=== PATIENT | female | born 1930 | race Caucasian/White ===

== ENCOUNTER 2017-10-07 10:38 | Inpatient (IN) | payer MEDICARE ==
--- NOTE | 2017-10-07 11:47 | ED ---
Lower Extremity - HPI Summary HPI Summary: Patient is an 87-year-old with a history of dementia presenting to the ED with brother (crm developer). Brother states she has been complaining of her left leg upon standing. Due to the patient's history of dementia, history of present illness and ROS are limited and unable to discern if she is currently having pain. Brother does denies any other complaints from patient. He states it is becoming difficult to care for her and she is falling more frequently. Patient of Dr. paulson. Current medications include Seroquel at bedtime. Decrease in weight from 120 to 72lbs in the past few months per . Decreased PO intake. 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 Hx From Patient Unobtainable Due To: Dementia Mechanism Of Injury: Unknown Onset of Pain: Days - most likely - patients unsure Severity Initially: Moderate Severity Currently: Moderate Pain Intensity: 8 Pain Scale Used: 0-10 Numeric Timing: Constant Character Of Pain: Unable To Describe Associated Signs And Symptoms: Positive: Weakness - at baseline d/t declination Aggravating Factor(s): Standing, Ambulation Alleviating Factor(s): Rest Able to Bear Weight: No - patient c/o pain upon bearing weight - Risk Factors Gout Risk Factors: Negative DVT Risk Factors: Negative Septic Arthritis Risk Factor: Negative - Allergies/Home Medications Allergies/Adverse Reactions: Allergies Allergy/AdvReac Type Severity Reaction Status Date / Time No Known Allergies Allergy Verified 03/28/17 13:35 Home Medications: Home Medications Cholecalciferol TAB* [Vitamin D TAB*] 1,000 unit PO DAILY 10/07/17 [History Confirmed 10/07/17] Citalopram TAB* [CeleXA TAB*] 20 mg PO DAILY 10/07/17 [History Confirmed ] QUEtiapine TAB* [SEROquel TAB*] 50 mg PO BEDTIME 10/07/17 [History Confirmed ] PMH/Surg Hx/FS Hx/Imm Hx Previously Healthy: Yes Endocrine/Hematology History: Denies: Hx Diabetes Cardiovascular History: Denies: Hx Hypertension History: Denies: Hx Dialysis, Hx Renal Disease Neurological History: Reports: Hx Dementia - Surgical History Surgery Procedure, Year, and Place: tubal, csection - Immunization History Hx Pertussis Vaccination: No Immunizations Up to Date: Unable to Obtain/Confirm Infectious Disease History: No Infectious Disease History: Denies: Traveled Outside the [place] in Last 30 Days - Family History Known Family History: Positive: None Family History: R & n/C - Social History Occupation: Retired Lives: With Family Alcohol Use: None Hx Substance Use: No Substance Use Type: Reports: None Hx Tobacco Use: No Smoking Status (MU): Never Smoked Tobacco Review of Systems Negative: Fever, Chills, Fatigue, Skin Diaphoresis Negative: Palpitations, Chest Pain Negative: Shortness Of Breath, Cough Genitourinary: Other - incontinent of urine Positive: Arthralgia - c/o pain to left leg Skin: Negative Neurological: Negative All Other Systems Reviewed And Are Negative: Yes Physical Exam Triage Information Reviewed: Yes Vital Signs On Initial Exam: Initial Vitals Temp Pulse Resp BP Pulse Ox 99.5 F 89 19 190/102 94 10/07/17 11:08 10/07/17 11:08 10/07/17 11:08 10/07/17 11:08 10/07/17 11:08 Vital Signs Reviewed: Yes Completion Of Physical Exam Limited Due To: Dementia Appearance: Positive: Thin - 72 lbs - not eating or drinking, Cachectic - Disheveled with dirt to fingernails and urine odor Skin: Positive: Skin Color Reflects Adequate Perfusion Head/Face: Positive: Normal Head/Face Inspection Neck: Positive: No Lymphadenopathy Respiratory/Lung Sounds: Positive: Clear to Auscultation Cardiovascular: Positive: RRR Musculoskeletal: Positive: Other - not complaining of pain after logrolling, no pain on deep palpation of both lower extremities Neurological: Positive: Other - dementia Psychiatric: Positive: Patient Uncooperative for Exam AVPU Assessment: Verbal (Reponds To) Diagnostics - Vital Signs Vital Signs Temp Pulse Resp BP Pulse Ox 10/07/17 11:08 99.5 F 89 19 190/102 94 - Laboratory Lab Statement: Any lab studies that have been ordered have been reviewed, and results considered in the medical decision making process. Lower Extremity Course/Dx - Course Course Of Treatment: Physical examination reveals a thin disheveled unkempt frail 87-year-old female with dementia unable to discuss history of present illness or ROS. She is unable to tell me if she is having pain. Log rolled patient both right and left and continued to not complain of pain. No obvious ecchymosis, erythema or swelling to the bilateral lower extremities. X-ray obtained. Discussed case with brother and I have advised the obtained a social work consult as he is having more difficulty caring for her at this time. Social work consult recommends palliative/hospice care for in home services as she is failure to thrive. IMPRESSION: #. Mildly impacted subcapital fracture of the LEFT femoral neck corresponding with the. radiographic finding. Negative for additional acute fracture within the [id number]. Associated small LEFT hip joint effusion. Discussed with Dr. Glover who recommends a femur x-ray as well. I've discussed the case with Dr. Green will admit to Hospital services for failure to thrive and further assess femoral neck fracture. Discussed case with family who would like to speak with the orthopedic surgeon prior to moving forward with any surgery. Labs obtained. - Diagnoses Differential Diagnosis/HQI/PQRI: Positive: Other - failure to thrive Provider Diagnoses: Femoral neck fracture - Physician Notifications Discussed Care Of Patient With: Grace Glover Instructed by Provider To: Admit As Inpatient Discharge - Sign-Out/Discharge Documenting (check all that apply): Discharge/Admit/Transfer - Discharge Plan Condition: Fair Disposition: ADMITTED TO [facility] Referrals: Alisson Paulson MD [Primary Care Provider] - - Billing Disposition and Condition Condition: FAIR Disposition: Admitted to [facility]
[2017-10-07 12:20] LABS: Urine Appearance Cloudy; Urine Blood 1+ (Negative); Urine Color Yellow; Urine Ketones Negative (Negative); Urine Protein Negative (Negative); Urine Specific Gravity 1.005 (1.010-1.030); Urine Urobilinogen Negative (Negative)
--- NOTE | 2017-10-07 12:58 | RAD ---
Indication: LEFT hip pain post fall. Comparison: March 28, 2017 CT. Technique: Supine AP pelvis and AP and frog-leg lateral views LEFT hip. Report: Suggestion of potential mildly impacted subcapital fracture at the LEFT femoral neck. Mild medial joint space narrowing at the LEFT hip. Negative for pelvic fracture or pelvic joint diastases. Unremarkable soft tissue contours. IMPRESSION: #. Probable mildly impacted subcapital fracture of the LEFT femoral neck. Correlate with clinical assessment. If there is low pretest probability for acute hip fracture consider CT for further assessment.
--- NOTE | 2017-10-07 14:19 | RAD ---
Indication: Multiple falls. LEFT hip and leg pain. Suggestion of mildly impacted subcapital LEFT femoral neck fracture on radiographs. Comparison: Radiographs of the same date. March 28, 2017 CT Technique: Multidetector CT pelvis without contrast. Multiplanar reformation with bone algorithm. Report: Severe rectal distention with stool. Negative for pelvic ascites or free air within the [id number]. Negative for significant hernias. Unremarkable partially distended urinary bladder as well as the atrophic uterus and adnexal regions. Negative for lymphadenopathy. Peripheral atherosclerotic calcification. Negative for aneurysm of the visualized distal abdominal aorta or iliac arteries. Negative for retroperitoneal or superficial soft tissue hematoma. Bone density appears decreased corresponding with osteopenia on November 05, 2010 DEXA scan. Mildly impacted subcapital fracture of the LEFT femoral neck corresponding with the radiographic finding. Negative for additional acute fracture within the [id number]. Associated small LEFT hip joint effusion. Both hips are remarkable for mild to moderate axial joint space narrowing and chondrocalcinosis of the hyaline articular cartilage and fibrocartilage labrum. IMPRESSION: #. Mildly impacted subcapital fracture of the LEFT femoral neck corresponding with the radiographic finding. Negative for additional acute fracture within the [id number]. Associated small LEFT hip joint effusion.
--- NOTE | 2017-10-07 15:06 | ADMNOTE ---
Subjective Date of Service: 10/07/17 Interval History: ADMISSION HISTORY AND PHYSICAL EXAM: Allergies Allergy/AdvReac Type Severity Reaction Status Date / Time No Known Allergies Allergy Verified 03/28/17 13:35 Home Medications Medication Instructions Recorded Confirmed Type Cholecalciferol TAB* [Vitamin D 1,000 unit PO DAILY 10/07/17 10/07/17 History TAB*] Citalopram TAB* [CeleXA TAB*] 20 mg PO DAILY 10/07/17 10/07/17 History QUEtiapine TAB* [SEROquel TAB*] 50 mg PO BEDTIME 10/07/17 10/07/17 History HPI: The history is obtained from her . She fell down about 2 PM yesterday and could not get up by herself. She was put in a WC. Today she still couldn' t walk. She denies pain. Family History: Findings - Unremarkable. Social History: Findings - Lives with her who is her SDM. No alcohol or tabacco use. Past Medical History: Findings - 4 children Review of Systems - Measurements Intake and Output: Intake and Output Last 24 Hours 10/05/17 10/06/17 10/07/17 10/08/17 06:59 06:59 06:59 06:59 Weight 72 lb - Review of Systems Constitutional Symptoms: Positive: Weight Loss - for almost a year. Dermatology: Positive: Normal HEENT: Positive: Normal Thyroid: Positive: Normal Pulmonary: Positive: Normal Cardiology: Positive: Normal Gastroenterology: Positive: Anorexia Genital - Urinary: Negative: Normal, Dysuria, Hematuria, Polyuria, Nocturia, Other Musculoskeletal: Negative: Joint Pain, Joint Stiffness, Arthritis, Osteoporosis, Low Back Pain , Sciatica, Joint Deformities, Kyphoscoliosis, Other Endocrinology: Positive: Normal Hematologic/Lymphatic: Negative: Anemia, Easy Brusing, Hx Leukemia, Hx Lymphoma, Use of Anticoagulant, Use of Antiplatelet Drugs, Other Neurology: Positive: Change in Memory Psychiatry: Positive: Normal Allergic/Immunologic: Negative: Hx Anaphylaxis, Hx Angioedema, Hx Environmental, Hx Seasonal, Athsma, Hx HIV, Immunocompromise, Swollen Glands LymphNodes, Other Objective Active Medications: Acetaminophen (Tylenol Tab*) 650 mg PO Q4H PRN PRN Reason: PAIN Cholecalciferol (Vitamin D Tab*) 1,000 units PO DAILY CARLOTA Citalopram Hydrobromide (Celexa Tab*) 10 mg PO DAILY CARLOTA Enoxaparin Sodium (Lovenox(*)) 30 mg SUBCUT Q24H CARLOTA Quetiapine Fumarate (Seroquel Tab*) 25 mg PO BEDTIME CARLOTA Vital Signs - 8 hr 10/07/17 11:08 Temperature 99.5 F Pulse Rate 89 Respiratory 19 Rate Blood Pressure 190/102 (mmHg) O2 Sat by Pulse 94 Oximetry Oxygen Devices in Use Now: Nasal Cannula Appearance: Lying supine on ED stretcher. Very passive, sparse speech. Looks comfortable. Eyes: No Scleral Icterus Ears/Nose/Mouth/Throat: Clear Oropharnyx, Mucous Membranes Moist Neck: NL Appearance and Movements; NL JVP, No Thyroid Enlargement, Masses Respiratory: Symmetrical Chest Expansion and Respiratory Effort, Clear to Auscultation, Clear to Percussion Cardiovascular: NL Sounds; No Murmurs; No JVD, RRR, No Edema, - Extremities: No Edema, No Clubbing, Cyanosis, - Skin: No Rash or Ulcers, No Nodules or Sclerosis, - Neurological: NL Sensation - Very passive. Not able to answer most questions, can only state her first name. No tremor. Result Diagrams: 10/08/17 01:02 10/07/17 15:31 Assess/Plan/Problems-Billing Assessment: - Patient Problems (1) Dementia Current Visit: Yes Status: Acute Code(s): F03.90 - UNSPECIFIED DEMENTIA WITHOUT BEHAVIORAL DISTURBANCE SNOMED Code(s): 40600275 Comment: On half her home dose of citalopram and quetiapine. Consider further reductions in the future. IV d/c'd. (2) Hip fracture, left Current Visit: Yes Status: Acute Code(s): S72.002A - FRACTURE OF UNSP PART OF NECK OF LEFT FEMUR, INIT SNOMED Code(s): 022446539 Comment: After much discussion with myself and Dr. Glover, the family has elected for non-surgical management. Given her recent decline this is a reasonable decision. I have ordered calorie counts which may help her qualify for Hospice.
[2017-10-07 15:41] LABS: ABS Basophils 0.1 10^3/ul (0-0.2); ABS Eosinophils 0.1 10^3/ul (0-0.6); ABS Monocytes 0.5 10^3/ul (0-0.8); ABS Neutrophils 5.7 10^3/ul (1.5-7.7); ABS Nucleated RBC 0 10^3/ul; Hematocrit 38 % (35-47); Hemoglobin 12.4 g/dl (12.0-16.0); Lymphocyte % 13.5 % (25-47); Mean Corpuscular HGB Conc 33 g/dl (31-36); Mean Corpuscular Hemoglobin 25 pg (27-31); Mean Corpuscular Volume 77 fL (80-97); Mean Platelet Volume 6.1 um3 (7.4-10.4); Nucleated Red Blood Cells % 0; Platelet Count 373 10^3/ul (150-450); Red Blood Count 4.88 10^6/ul (4.00-5.40); Red Cell Distribution Width 15 % (10.5-15); White Blood Count 7.3 10^3/ul (3.5-10.8)
[2017-10-07 15:57] LABS: EGFR Non-African American 93.2 (>60)
[2017-10-07 16:02] LABS: INR 0.96 (0.77-1.02)
--- NOTE | 2017-10-07 16:48 | RAD ---
INDICATION: Traumatic left femoral fracture COMPARISON: October 07, 2017 TECHNIQUE: AP and lateral views were obtained. FINDINGS: There is a subtle, impacted, femoral neck fracture. No other fractures are evident. The hip articulates normally. The soft tissues are intact. IMPRESSION: IMPACTED FEMORAL NECK FRACTURE.
[2017-10-07] MEDS: Enoxaparin(*) 30 MG/0.3 ML SYR SUBCUT SCH (18:18)
--- NOTE | 2017-10-07 21:38 | CONS ---
CC: Dr. Paulson * CONSULTATION REPORT: DATE OF CONSULT: 10/07/17 ATTENDING PHYSICIAN: Grace Glover MD PRIMARY CARE PHYSICIAN: Dr. Paulson. CHIEF COMPLAINT: Left hip pain. HISTORY OF PRESENT ILLNESS: Briefly, the patient is an 87-year-old mildly demented lady, who fell down the stairs around 2 p.m., could not get up by herself. She has had a several falls in the last few months. She said she was in a wheelchair last night because she could not put weight on it. This morning , she was still unable to weight bear. She states it hurts if she is putting weight on her foot. She denies numbness or tingling. No fevers or chills. She does ambulate sometimes with a walker, sometimes without any assistive devices, but is limited only into her house between the bedrooms. She is demented. She is lying down quietly in the stretcher. She denies any fevers, chills, numbness or tingling. PAST MEDICAL HISTORY: Significant for weight loss of almost 50 pounds over the last 1 to 2 years as well as mild dementia. MEDICATIONS: 1. Seroquel. 2. Citalopram. ALLERGIES: None. FAMILY HISTORY: Negative. SOCIAL HISTORY: Lives with her . She has 4 sons. There is no tobacco or alcohol use. She is right-hand dominant. She talks minimally. PHYSICAL EXAM: She is in no acute distress. She is lying comfortably in the bed. Temperature is 99.5, pulse is 89, respiratory rate is 19, O2 saturation is 94, blood pressure is 190/102. She reports she is not in any pain. She is alert to herself. She does not answer all the questions, only some of the questions. She does follow commands. EOMI. Chest is clear. She is respiring comfortably. Heart is regular rate and rhythm. Abdomen is soft. Examination of the left hip demonstrates skin is intact. She has some discomfort with logroll, mild pain with axillary load. She is sensate to light touch about the first dorsal webspace, medial, lateral, dorsal and plantar foot. She has 2+ PT pulse. Her calf is soft and nontender. DIAGNOSTIC STUDIES/LAB DATA: X-rays of her hip reveal a valgus-impacted femoral neck fracture. CT scan was also done that demonstrates the aforementioned fracture. Full length femur films are pending. Labs from today , white blood cells count 7.3, hematocrit 38, platelet 373. INR 0.96. Sodium is 133, potassium 4.1, chloride 99, carbon dioxide 25, BUN is 13, creatinine is 0.61, total protein is 112, albumin is 3.9, prealbumin is pending. ASSESSMENT AND PLAN: She has a subcapital femoral neck fracture. At this time , her is at the bedside and he is concerned about the risk for surgery. We talked about the risk of nonsurgical versus surgical treatment including bedrest and risk of deep venous thrombosis, pulmonary embolism, bedsores and pneumonia. We also talked about fixation, which included the risk of bleeding; infections; damage to nerves, vessels, surrounding structures; wound nonhealing ; persistent pain; need for surgery; scarring; stiffness; incomplete relief of symptoms; risk of anesthesia as well as risk of deep venous thrombosis; nonunion ; malunion; failure of hardware and impaired mobility. At this point, he is not sure if he wants to proceed with surgical treatment. He said she is comfortable. She is not complaining of pain. I did explain to the family that if she is not able to sit up comfortably in the bed, she is at a high risk of bedsores and pneumonia, and I would consider fixation at this point, and he wants to discuss this with the family and thus says no to surgery at this time. We will meet up with him and his sons at 8 a.m. in the morning. She will be n.p.o. after midnight. She is nonweightbearing. She needs to be able to be sit up out of bed to chair if she tolerates it, q.2 turns to prevent bedsores and nonweightbearing on the left leg. I will follow the patient in the morning. We will plan for surgery, which would be closed reduction and percutaneous pinning if the family is agreeable. If the family is not interested, they may place her on hospice. [id number]/[facility] #: [id number] STEPH[place]
[2017-10-07] MEDS: QUEtiapine TAB* 25 MG PO SCH ×2 (21:52→22:01)
[2017-10-07] MEDS: Acetaminophen TAB* 325 MG PO PRN (21:55)
[2017-10-08 01:18] LABS: Hematocrit 31 % (35-47); Hemoglobin 10.3 g/dl (12.0-16.0)
[2017-10-08] MEDS: NS 0.9% 1000 ML* 1,000 ML IV SCH ×2 (01:50→08:34)
[2017-10-08] MEDS ORDERED: NS 0.9% 500 ML* 500 ML IV ONE (02:00)
--- NOTE | 2017-10-08 08:08 | PN ---
Progress Note - Progress Note Date of Service: 10/08/17 SOAP: Subjective: Pt asleep in bed. Not talking. No acute events overnight. and 2 sons at bedside. Objective: Temp Pulse Resp BP Pulse Ox 98.6 F 68 16 119/59 100 10/08/17 03:01 10/08/17 03:01 10/08/17 03:01 10/08/17 03:01 10/08/17 03:01 NAD. sleeping. not cooperative. left leg warm and well perfused. skin intact. Laboratory Results - last 24 hr 10/07/17 10/07/17 10/07/17 12:00 15:31 15:31 WBC 7.3 RBC 4.88 Hgb 12.4 Hct 38 MCV 77 L MCH 25 L MCHC 33 RDW 15 Plt Count 373 MPV 6.1 L Neut % (Auto) 78.1 Lymph % (Auto) 13.5 L [place] % (Auto) 6.5 Eos % (Auto) 1.0 Baso % (Auto) 0.9 Absolute Neuts (auto) 5.7 Absolute Lymphs (auto) 1.0 Absolute Monos (auto) 0.5 Absolute Eos (auto) 0.1 Absolute Basos (auto) 0.1 Absolute Nucleated RBC 0 Nucleated RBC % 0 INR (Anticoag Therapy) 0.96 Sodium Potassium Chloride Carbon Dioxide Anion Gap BUN Creatinine Est GFR ( Amer) Est GFR (Non-Af Amer) BUN/Creatinine Ratio Glucose Lactic Acid Calcium Total Bilirubin AST ALT Alkaline Phosphatase Total Protein Albumin Globulin Albumin/Globulin Ratio Prealbumin Urine Color Yellow Urine Appearance Cloudy Urine pH 7.0 Ur Specific [place] 1.005 L Urine Protein Negative Urine Ketones Negative Urine Blood 1+ A Urine Nitrate Negative Urine Bilirubin Negative Urine Urobilinogen Negative Ur Leukocyte Esterase 3+ A Urine WBC (Auto) 2+(11-20/hpf) A Urine RBC (Auto) 1+(3-5/hpf) A Ur Squamous Epith Cells Present A Urine Bacteria Absent Urine Glucose Negative 10/07/17 10/07/17 10/08/17 15:31 15:31 01:02 WBC RBC Hgb 10.3 L Hct 31 L MCV MCH MCHC RDW Plt Count MPV Neut % (Auto) Lymph % (Auto) [place] % (Auto) Eos % (Auto) Baso % (Auto) Absolute Neuts (auto) Absolute Lymphs (auto) Absolute Monos (auto) Absolute Eos (auto) Absolute Basos (auto) Absolute Nucleated RBC Nucleated RBC % INR (Anticoag Therapy) Sodium 133 L Potassium 4.1 Chloride 99 L Carbon Dioxide 25 Anion Gap 9 BUN 13 Creatinine 0.61 Est GFR ( Amer) 112.8 Est GFR (Non-Af Amer) 93.2 BUN/Creatinine Ratio 21.3 H Glucose 110 H Lactic Acid 0.9 Calcium 9.8 Total Bilirubin 0.90 AST 9 L ALT 10 Alkaline Phosphatase 112 H Total Protein 7.5 Albumin 3.9 Globulin 3.6 Albumin/Globulin Ratio 1.1 Prealbumin 18 Urine Color Urine Appearance Urine pH Ur Specific [place] Urine Protein Urine Ketones Urine Blood Urine Nitrate Urine Bilirubin Urine Urobilinogen Ur Leukocyte Esterase Urine WBC (Auto) Urine RBC (Auto) Ur Squamous Epith Cells Urine Bacteria Urine Glucose Assessment: HD#1 with L hip valgus impacted femoral neck fx Plan: I spent 15 minutes at the bedside talking to family about risks and benefits to operative versus nonoperative treatment. I recommended surgical treatment. The family had a discussion with Dr Green who advised the family not to proceed with surgery. In my opinion, surgical stabilization is appropriate to mobilization and pain control. The patient is not in pain when she is at rest which is normal in this fracture. But she has not been sufficiently mobilized. I warn the risks of bedrest which include bedsores, pneumonia, and poor quality of life. Surgical treatment carries risks as well. I reviewed that the mortality rate is at least 30% after surgery but will be higher with bedrest. Family is not interested in surgical treatment. wants to take her home. I told him he will likely have difficulty unless they take her home on hospice. Will sign off for now. Please call with questions.
[2017-10-08] MEDS: Citalopram TAB* 10 MG PO SCH (09:40)
[2017-10-08] MEDS: Cholecalciferol TAB* 1000 UNITS PO SCH (09:40)
--- NOTE | 2017-10-08 10:41 | PN ---
Subjective Date of Service: 10/08/17 Interval History: Patient denies pain, offers no c/o. I note her memory is poor but she seems content now. Family History: Findings - Unremarkable. Social History: Findings - Lives with her who is her SDM. No alcohol or tabacco use. Past Medical History: Findings - 4 children Objective Active Medications: Acetaminophen (Tylenol Tab*) 650 mg PO Q4H PRN PRN Reason: PAIN Last Admin: 10/07/17 21:55 Dose: 650 mg Cholecalciferol (Vitamin D Tab*) 1,000 units PO DAILY CARLOTA Last Admin: 10/08/17 09:40 Dose: 1,000 units Citalopram Hydrobromide (Celexa Tab*) 10 mg PO DAILY [facility] Last Admin: 10/08/17 09:40 Dose: 10 mg Enoxaparin Sodium (Lovenox(*)) 30 mg SUBCUT Q24H CAR[place]OTA Last Admin: 10/07/17 18:18 Dose: 30 mg Quetiapine Fumarate (Seroquel Tab*) 25 mg PO BEDTIME [facility] Last Admin: 10/07/17 22:01 Dose: 25 mg Vital Signs - 8 hr 10/08/17 10/08/17 10/08/17 03:01 07:39 07:45 Temperature 98.6 F 97.8 F Pulse Rate 68 74 71 Respiratory 16 16 Rate Blood Pressure 119/59 159/74 (mmHg) O2 Sat by Pulse 100 100 Oximetry Oxygen Devices in Use Now: None Appearance: Alert, supine in bed in semi- position. Eyes: No Scleral Icterus Neck: NL Appearance and Movements; NL JVP, No Thyroid Enlargement, Masses Respiratory: Symmetrical Chest Expansion and Respiratory Effort, Clear to Auscultation, Clear to Percussion Extremities: No Edema, No Clubbing, Cyanosis Neurological: NL Gait - Flat affect. Looks comfortable. She can say her first name, not her last name, and cannot give any other personal information such as her age. She does not know where she is. No tremor. Result Diagrams: 10/08/17 01:02 10/07/17 15:31 Assess/Plan/Problems-Billing Assessment: - Patient Problems (1) Hip fracture, left Current Visit: Yes Status: Acute Code(s): S72.002A - FRACTURE OF UNSP PART OF NECK OF LEFT FEMUR, INIT SNOMED Code(s): 463092898 Comment: Family has elected for non-surgical management. Given her recent decline this is a reasonable decision. I have ordered calorie counts which may help her qualify for Hospice. Palliative consult entered. (2) Dementia Current Visit: Yes Status: Acute Code(s): F03.90 - UNSPECIFIED DEMENTIA WITHOUT BEHAVIORAL DISTURBANCE SNOMED Code(s): 61637568 Comment: On half her home dose of citalopram and quetiapine. Consider further reductions in the near future.
[2017-10-08] MEDS: Enoxaparin(*) 30 MG/0.3 ML SYR SUBCUT SCH (17:05)
[2017-10-08] MEDS ORDERED: NS 0.9% 1000 ML* 500 ML IV SCH (19:45)
[2017-10-08] MEDS: Acetaminophen TAB* 325 MG PO PRN (20:14)
[2017-10-08] MEDS: QUEtiapine TAB* 25 MG PO SCH ×2 (20:15→20:32)
[2017-10-09] MEDS ORDERED: amLODIPine TAB* 5 MG PO ONE ×2 (01:51)
[2017-10-09] MEDS ORDERED: hydrALAZINE IV* 20 MG/ML VIAL IV SLOW PU ONE (03:00)
[2017-10-09] MEDS: Acetaminophen TAB* 325 MG PO PRN (03:52)
[2017-10-09] MEDS: Citalopram TAB* 10 MG PO SCH (08:43)
[2017-10-09] MEDS: Cholecalciferol TAB* 1000 UNITS PO SCH (08:43)
--- NOTE | 2017-10-09 15:23 | PN ---
Subjective Date of Service: 10/09/17 Interval History: She offers no c/o. She denies pain, hunger, thirst. She seems content. Family History: Findings - Unremarkable. Social History: Findings - Lives with her who is her SDM. No alcohol or tabacco use. Past Medical History: Findings - 4 children Objective Active Medications: Acetaminophen (Tylenol Tab*) 650 mg PO Q4H PRN PRN Reason: PAIN Last Admin: 10/09/17 03:52 Dose: 650 mg Cholecalciferol (Vitamin D Tab*) 1,000 units PO DAILY [facility] Last Admin: 10/09/17 08:43 Dose: 1,000 units Citalopram Hydrobromide (Celexa Tab*) 10 mg PO DAILY [facility] Last Admin: 10/09/17 08:43 Dose: 10 mg Enoxaparin Sodium (Lovenox(*)) 30 mg SUBCUT Q24H [facility] Last Admin: 10/08/17 17:05 Dose: 30 mg Quetiapine Fumarate (Seroquel Tab*) 25 mg PO BEDTIME [facility] Last Admin: 10/08/17 20:32 Dose: 25 mg Vital Signs - 8 hr 10/09/17 10/09/17 10/09/17 07:53 07:58 11:27 Temperature 97.7 F 98.2 F Pulse Rate 75 79 Respiratory 16 16 16 Rate Blood Pressure 152/72 140/58 (mmHg) O2 Sat by Pulse 99 Oximetry Oxygen Devices in Use Now: None Appearance: Alert, partly up in bed. Neutral affect, very passive. Looks comfortable. Eyes: No Scleral Icterus Skin: No Rash or Ulcers, No Nodules or Sclerosis, - Neurological: NL Sensation, - - Very passive. Answers yes or no. No tremor. Does not look at her visitors. Result Diagrams: 10/08/17 01:02 10/07/17 15:31 Microbiology and Other Data: Microbiology 10/07/17 12:00 Urine Culture - Final Urine Escherichia Coli Assess/Plan/Problems-Billing Assessment: - Patient Problems (1) Hip fracture, left Current Visit: Yes Status: Acute Code(s): S72.002A - FRACTURE OF UNSP PART OF NECK OF LEFT FEMUR, INIT SNOMED Code(s): 595181279 Comment: Family has elected for non-surgical management. Given her recent decline this is a reasonable decision. I have ordered calorie counts which may help her qualify for Hospice, however staff has noted she ate none of her first two meals today and only one meal yesterday. Palliative consult pending. (2) Dementia Current Visit: Yes Status: Acute Code(s): F03.90 - UNSPECIFIED DEMENTIA WITHOUT BEHAVIORAL DISTURBANCE SNOMED Code(s): 30295829 Comment: On half her home dose of citalopram and quetiapine. Consider further reductions in the future. IV d/c'd.
[2017-10-09] MEDS: Enoxaparin(*) 30 MG/0.3 ML SYR SUBCUT SCH (15:50)
[2017-10-10] MEDS: QUEtiapine TAB* 25 MG PO SCH ×2 (00:30→21:30)
[2017-10-10] MEDS: Citalopram TAB* 10 MG PO SCH (10:00)
[2017-10-10] MEDS: Cholecalciferol TAB* 1000 UNITS PO SCH (10:01)
--- NOTE | 2017-10-10 13:37 | PN ---
Subjective Date of Service: 10/10/17 Interval History: HOSPITALIST PROGRESS NOTE Patient seen and examined at bedside. Care reviewed and d/w Geneva Olson RN. She did not talk to me. As per she's not complaining of pain. Eating just a little, but this is her usual as per and sons. Lost 50lbs over the past year and a half. Family History: Unchanged from Admission Social History: Unchanged from Admission Past Medical History: Unchanged from Admission Objective Active Medications: Acetaminophen (Tylenol Tab*) 650 mg PO Q4H PRN PRN Reason: PAIN Last Admin: 10/09/17 03:52 Dose: 650 mg Cholecalciferol (Vitamin D Tab*) 1,000 units PO DAILY [facility] Last Admin: 10/10/17 10:01 Dose: 1,000 units Citalopram Hydrobromide (Celexa Tab*) 10 mg PO DAILY [facility] Last Admin: 10/10/17 10:00 Dose: 10 mg Enoxaparin Sodium (Lovenox(*)) 30 mg SUBCUT Q24H [facility] Last Admin: 10/09/17 15:50 Dose: 30 mg Quetiapine Fumarate (Seroquel Tab*) 25 mg PO BEDTIME [facility] Last Admin: 10/10/17 00:30 Dose: Not Given Vital Signs - 8 hr 10/10/17 10/10/17 07:30 08:00 Temperature 97.9 F Pulse Rate 94 Respiratory 17 16 Rate Blood Pressure 155/85 (mmHg) O2 Sat by Pulse 94 Oximetry Oxygen Devices in Use Now: Nasal Cannula Appearance: Elderly thin lady lying in bed in NAD. Eyes: No Scleral Icterus Ears/Nose/Mouth/Throat: Mucous Membranes Moist Neck: Trachea Midline Respiratory: Symmetrical Chest Expansion and Respiratory Effort, Clear to Auscultation Cardiovascular: RRR - Normal S1 and S2 Abdominal: NL Sounds; No Tenderness; No Distention Neurological: - - Alert and awake, did not talk to me Result Diagrams: 10/08/17 01:02 10/07/17 15:31 Assess/Plan/Problems-Billing Assessment: Mrs Dumont is an 87yo F with PMH of advanced dementia, protein calorie malnutrition, who presented to ED after a fall/inability to walk, found to have a left subcapital femoral neck fracture. - Patient Problems (1) Hip fracture, left Comment: - Patient's declines surgery - he understands patient will be at a very high risk of passing over the next 6 months, probably from infection ( pneumonia/UTI/bed sores). He understood Dr. Glover's recommendations but feels surgery would not be in the patient's best interest. - His plan is to take her home with Hospice and aide services. - NWB to LLE - PT evaluation to assess if she's able to transfer with assistance or will require Leola lift. (2) Moderate protein-calorie malnutrition Comment: - PO intake is very poor - 25% breakfast, 0% lunch, 50% dinner. - She has lost 50lbs unintentionally over the past year and a half. BMI is only 15, but prealbumin is normal. (3) Dementia Comment: - Continue citalopram and quetiapine. (4) DNR (do not resuscitate) Status and Disposition: Inpatient. Plan to d/c home with Hospice and home care manager help.
[2017-10-10] MEDS: Enoxaparin(*) 30 MG/0.3 ML SYR SUBCUT SCH (15:35)
[2017-10-10] MEDS: Acetaminophen TAB* 325 MG PO PRN (21:30)
[2017-10-11] MEDS: Cholecalciferol TAB* 1000 UNITS PO SCH (09:40)
[2017-10-11] MEDS: Citalopram TAB* 10 MG PO SCH (09:40)
[2017-10-11] MEDS: ceFUROXime TAB(*) 250 MG PO SCH ×3 (12:07→21:29)
--- NOTE | 2017-10-11 13:17 | PN ---
Subjective Date of Service: 10/11/17 Interval History: HOSPITALIST PROGRESS NOTE Patient seen and examined at bedside. Care reviewed and d/w Geneva Tucker RN. She offers no complaints, denies pain. PO intake very poor - only 10% of her lunch yesterday. Family History: Unchanged from Admission Social History: Unchanged from Admission Past Medical History: Unchanged from Admission Objective Active Medications: Acetaminophen (Tylenol Tab*) 650 mg PO Q4H PRN PRN Reason: PAIN Last Admin: 10/10/17 21:30 Dose: 650 mg Cefuroxime Axetil (Ceftin Tab(*)) 250 mg PO BID [facility] Stop: 10/15/17 21:01 Last Admin: 10/11/17 12:07 Dose: 250 mg Cholecalciferol (Vitamin D Tab*) 1,000 units PO DAILY [facility] Last Admin: 10/11/17 09:40 Dose: Not Given Citalopram Hydrobromide (Celexa Tab*) 10 mg PO DAILY [facility] Last Admin: 10/11/17 09:40 Dose: Not Given Enoxaparin Sodium (Lovenox(*)) 30 mg SUBCUT Q24H [facility] Last Admin: 10/10/17 15:35 Dose: 30 mg Quetiapine Fumarate (Seroquel Tab*) 25 mg PO BEDTIME [facility] Last Admin: 10/10/17 21:30 Dose: 25 mg Vital Signs - 8 hr 10/11/1718 10/11/17 07:23 09:00 11:42 Temperature 97.6 F 97.4 F Pulse Rate 84 80 Respiratory 17 16 16 Rate Blood Pressure 154/83 136/73 (mmHg) O2 Sat by Pulse 96 95 Oximetry Oxygen Devices in Use Now: None Appearance: Elderly thin lady lying in bed in [facility]. Eyes: No Scleral Icterus Ears/Nose/Mouth/Throat: Mucous Membranes Moist Neck: Trachea Midline Respiratory: Symmetrical Chest Expansion and Respiratory Effort, Clear to Auscultation Cardiovascular: RRR - Normal S1 and S2 Extremities: No Edema, - - Good capillary refill and pulses, can wiggle toes Neurological: - - AAOx1 (self) Result Diagrams: 10/08/17 01:02 10/07/17 15:31 Assess/Plan/Problems-Billing Assessment: Mrs Dumont is an 87yo F with PMH of advanced dementia, protein calorie malnutrition, who presented to ED after a fall/inability to walk, found to have a left subcapital femoral neck fracture. - Patient Problems (1) Hip fracture, left Comment: - Patient's declines surgery - he understands patient will be at a very high risk of passing over the next 6 months, probably from infection ( pneumonia/UTI/bed sores). He understood Dr. Glover's recommendations but feels surgery would not be in the patient's best interest. - His plan is to take her home with Hospice and aide services. Would consider [facility] depending on how much it costs. - NWB to LLE - PT evaluation appreciated - will require Leola lift. (2) E. coli UTI Comment: - Present on admission, not Gutierrez catheter related. - Start Ceftin PO x 5 days. (3) Moderate protein-calorie malnutrition Comment: - PO intake is very poor - 10% lunch only yesterday. - She has lost 50lbs unintentionally over the past year and a half. BMI is only 15, but prealbumin is normal. (4) Dementia Comment: - Continue citalopram and quetiapine. (5) DNR (do not resuscitate) Status and Disposition: Inpatient. Plan to d/c home with Hospice and home improvement advisor help.
[2017-10-11] MEDS: Enoxaparin(*) 30 MG/0.3 ML SYR SUBCUT SCH (16:10)
[2017-10-11] MEDS: QUEtiapine TAB* 25 MG PO SCH ×2 (21:02→21:30)
[2017-10-12 08:11] VITALS: BP 123/65
[2017-10-12] MEDS: Cholecalciferol TAB* 1000 UNITS PO SCH (08:55)
[2017-10-12] MEDS: Citalopram TAB* 10 MG PO SCH (08:55)
[2017-10-12] MEDS: ceFUROXime TAB(*) 250 MG PO SCH ×2 (08:55→21:48)
--- NOTE | 2017-10-12 10:28 | PN ---
Subjective Date of Service: 10/12/17 Interval History: HOSPITALIST PROGRESS NOTE Patient seen and examined at bedside. Care reviewed and d/w Guru Vasquez RN. She offers no complaints at this time, denies pain. Refusing medications today. Family History: Unchanged from Admission Social History: Unchanged from Admission Past Medical History: Unchanged from Admission Objective Active Medications: Acetaminophen (Tylenol Tab*) 650 mg PO Q4H PRN PRN Reason: PAIN Last Admin: 10/10/17 21:30 Dose: 650 mg Cefuroxime Axetil (Ceftin Tab(*)) 250 mg PO BID [facility] Stop: 10/15/17 21:01 Last Admin: 10/12/17 08:55 Dose: Not Given Cholecalciferol (Vitamin D Tab*) 1,000 units PO DAILY [facility] Last Admin: 10/12/17 08:55 Dose: Not Given Citalopram Hydrobromide (Celexa Tab*) 10 mg PO DAILY [facility] Last Admin: 10/12/17 08:55 Dose: Not Given Enoxaparin Sodium (Lovenox(*)) 30 mg SUBCUT Q24H [facility] Last Admin: 10/11/17 16:10 Dose: 30 mg Quetiapine Fumarate (Seroquel Tab*) 25 mg PO BEDTIME [facility] Last Admin: 10/11/17 21:30 Dose: Not Given Vital Signs - 8 hr 10/12/17 10/12/17 03:30 07:27 Temperature 98.2 F 99.1 F Pulse Rate 77 89 Respiratory 16 16 Rate Blood Pressure 141/75 123/65 (mmHg) O2 Sat by Pulse 100 99 Oximetry Oxygen Devices in Use Now: None Appearance: Elderly frail lady lying in bed in [facility]. Eyes: No Scleral Icterus Ears/Nose/Mouth/Throat: Mucous Membranes Moist Neck: Trachea Midline Neurological: - - AAOx1 (self only) Result Diagrams: 10/08/17 01:02 10/07/17 15:31 Assess/Plan/Problems-Billing Assessment: Mrs Dumont is an 87yo F with PMH of advanced dementia, protein calorie malnutrition, who presented to ED after a fall/inability to walk, found to have a left subcapital femoral neck fracture. - Patient Problems (1) Hip fracture, left Comment: - Patient's declines surgery - he understands patient will be at a very high risk of passing over the next 6 months, probably from infection ( pneumonia/UTI/bed sores). He understood Dr. Glover's recommendations but feels surgery would not be in the patient's best interest. - Plan to [facility]. (2) E. coli UTI Comment: - Present on admission, not Gutierrez catheter related. - Ceftin ordered, but patient refusing PO meds. (3) Moderate protein-calorie malnutrition Comment: - PO intake is very poor - 30% lunch and 5% dinner yesterday. - She has lost 50lbs unintentionally over the past year and a half. BMI is only 15, but prealbumin is normal. (4) Dementia Comment: - Continue citalopram and quetiapine. (5) DNR (do not resuscitate) Status and Disposition: Inpatient. [facility]tic[facility].
[2017-10-12] MEDS: Enoxaparin(*) 30 MG/0.3 ML SYR SUBCUT SCH (15:20)
[2017-10-12] MEDS: QUEtiapine TAB* 25 MG PO SCH (21:48)
[2017-10-13] MEDS: Cholecalciferol TAB* 1000 UNITS PO SCH (09:07)
[2017-10-13] MEDS: Citalopram TAB* 10 MG PO SCH (09:07)
[2017-10-13] MEDS: ceFUROXime TAB(*) 250 MG PO SCH (09:07)
--- NOTE | 2017-10-14 05:23 | DS ---
CC: Alisson Paulson MD* DISCHARGE SUMMARY: DATE OF ADMISSION: 10/07/17 DATE OF DISCHARGE: 10/13/17 PRIMARY CARE PROVIDER: Dr. Alisson paulson DISCHARGE DIAGNOSES: 1. Left impacted femoral neck fracture. 2. Escherichia coli urinary tract infection, present on admission, no Gutierrez catheter related. 3. Moderate protein calorie malnutrition. SECONDARY DIAGNOSIS: Advanced dementia. MEDICATION LIST: 1. Acetaminophen 650 mg p.o. q.4 hours p.r.n. pain or fever. 2. Cefuroxime 250 mg p.o. b.i.d. for 3 days. 3. Cholecalciferol 1000 units p.o. daily. 4. Citalopram 10 mg p.o. daily. 5. Lovenox 30 mg subcutaneously daily. 6. Lorazepam 0.5 mg p.o. q.6 hours p.r.n. anxiety, MDD 4 tablets. 7. Morphine oral concentrate 5 mg sublingual q.2 hours p.r.n. severe pain, tachypnea, MDD 60 mg. 8. Seroquel 25 mg p.o. at bedtime. HOSPITAL COURSE: Ms. Dumont is an 87-year-old lady with past medical history as stated above that presented to the emergency room with complaints of left hip pain. She has dementia, has lost 50 pounds over the past year and has sustained multiple falls at home over the past few months. She was in a wheelchair prior to admission because she could not bear weight on her left lower extremity. Her does most of her care at home. For more details about presentation, I refer you to her history and physical. A hip, pelvis x-ray showed a mildly impacted subcapital fracture of the left femoral neck. A CT of the pelvis showed a mildly impacted subcapital fracture of the left femoral neck corresponding with radiographic finding. Negative for additional acute fracture within the filed of view. Associated small left hip joint effusion. The patient was seen in consultation by Orthopedics (Dr. Glover) and she discussed risks and benefits of surgery including risks of bed rest, DVT, PE, bed sores, pneumonia. She described surgery including fixation and risks of bleeding, infection, damage to nerves, vessels, surrounding structures, wound nonhealing, persistent pain, scarring, stiffness, incomplete relief of symptoms and also risk of anesthesia. After reviewing the risks and benefits, the was not interested in surgery. The and the sons understand that the patient will not be able to sit up comfortably in bed, that she is at high risk for bed sores, pneumonia, urinary tract infection and the Orthopedics was recommending fixation at this point, but after talking to family, decision was to not pursue surgical treatment. Considering her dementia and her significant weight loss of 50 pounds over the past year (the patient is now down to 72 pounds with a BMI of 15), we talked about hospice and the was interested in it. After talking to social workers and case management rn, he agreed that the best option would be for her to go to the hospice care residence and she will be discharged today. The patient was admitted on Seroquel and citalopram and those 2 drugs can cause QT prolongation. We are tapering the dose down. She is now down to 10 mg of citalopram and 25 of Seroquel and ideally may be the citalopram could be discontinued. The patient is also on Lovenox for now as she is at a high risk for DVT/PE with a recent fracture, but this can also be readdressed at the hospice care residence. DIET: Regular diet for comfort with a pureed texture. ACTIVITIES: Nonweightbearing to the left lower extremity. The patient has been using a Leola Lift for transfer. STATUS IN THE HOSPITAL: Inpatient. DISPOSITION: To the hospice care residence. CODE STATUS: Do not resuscitate. Please keep in mind that this is a summarized version of this patient's hospital stay. If you need more information, please feel free to call me at [phone] or please obtain the full medical records. TIME SPENT: Approximately 45 minutes were spent to complete this discharge. [id number]/CPS #: [id number] [place]
== END 2017-10-13 10:55 | disposition hospice, inpatient (51) | DRG 536 ==
LOC: ED 10:38 → SSU 14:44
PROVIDERS: ADMIT Internal Medicine; ATTEND Internal Medicine
DX: S72.012A Unspecified intracapsular fracture of left femur, initial encounter for closed fracture (principal); N39.0 Urinary tract infection, site not specified; E44.0 Moderate protein-calorie malnutrition; Z68.1 Body mass index [BMI] 19.9 or less, adult; W10.9XXA Fall (on) (from) unspecified stairs and steps, initial encounter; Z66 Do not resuscitate; F03.90 Unspecified dementia, unspecified severity, without behavioral disturbance, psychotic disturbance, mood disturbance, and anxiety; B96.20 Unspecified Escherichia coli [E. coli] as the cause of diseases classified elsewhere; Y92.009 Unspecified place in unspecified non-institutional (private) residence as the place of occurrence of the external cause; Z91.81 History of falling; Z79.899 Other long term (current) drug therapy
CPT/HCPCS: 36415; 72192; 80053; 81003; 81015; 83605; 84134; 85014; 85018; 85025; 85610; 87077; 87086; 87186; 99284; A9270-GY; G8978-GP-CN; G8979-GP-CN; G8980-GP-CN; G8987-GO-CN; G8988-GO-CN; J0360; J1650